=== PATIENT | female | born 1980 | race Caucasian/White ===

== ENCOUNTER → 2018-03-22 08:29 | Outpatient (CLI) | payer OTHER | END | disposition home or self-care (01) | LOC: LAB 08:29 | DX: E11.9 Type 2 diabetes mellitus without complications (principal); E78.3 Hyperchylomicronemia; D66 Hereditary factor VIII deficiency; D65 Disseminated intravascular coagulation [defibrination syndrome]; N39.0 Urinary tract infection, site not specified; Z01.810 Encounter for preprocedural cardiovascular examination ==

== ENCOUNTER 2019-02-04 11:46 | Emergency (ER) | payer OTHER ==
[~2019-02-04] VITALS: Ht 160 cm; Wt 63.5 kg
== END 2019-02-04 16:08 | disposition home or self-care (01) ==
LOC: ER 11:46
DX: G43.909 Migraine, unspecified, not intractable, without status migrainosus (principal)

== ENCOUNTER 2019-03-25 08:23 | Emergency (ER) | payer OTHER ==
[~2019-03-25] VITALS: Ht 160 cm; Wt 61.2 kg
[2019-03-25] MEDS ORDERED: PEPCID AC20 MG PO (15:19)
[2019-03-25] MEDS ORDERED: DICY20TA PO (15:19)
== END 2019-03-25 16:14 | disposition home or self-care (01) ==
LOC: ER 08:23
DX: K29.60 Other gastritis without bleeding (principal); T50.995A Adverse effect of other drugs, medicaments and biological substances, initial encounter; Y92.89 Other specified places as the place of occurrence of the external cause

== ENCOUNTER 2022-11-22 08:41 | Outpatient (CLI) | payer OTHER ==
[~2022-11-22 08:41] MED LIST: DICY20TA PO; PEPCID AC20 MG PO
== END 2022-11-22 08:52 | disposition home or self-care (01) ==
LOC: RAD 08:41
PROVIDERS: ATTEND Orthopaedic Surgery Hand Surgery
DX: S63.302A Traumatic rupture of unspecified ligament of left wrist, initial encounter (principal); S63.522D Sprain of radiocarpal joint of left wrist, subsequent encounter
CPT/HCPCS: 73218

== ENCOUNTER 2022-12-01 07:08 | Outpatient (CLI) | payer OTHER ==
[2022-12-03] MEDS ORDERED: PAXIL20 MG PO (13:46)
[2022-12-03] MEDS ORDERED: EFFEXOR XR75 MG PO (13:46)
[2022-12-03] MEDS ORDERED: LAMICTAL25 MG PO (13:46)
[2022-12-03] MEDS ORDERED: CLONAZEPAM1 M1 PO (13:47)
[2022-12-03] MEDS ORDERED: ABILIFY10 MG PO (13:47)
== END 2022-12-01 23:00 | disposition home or self-care (01) ==
LOC: LAB 07:08
PROVIDERS: ATTEND Orthopaedic Surgery Hand Surgery
DX: Z01.810 Encounter for preprocedural cardiovascular examination (principal); Z20.822 Contact with and (suspected) exposure to COVID-19; E11.9 Type 2 diabetes mellitus without complications; E78.00 Pure hypercholesterolemia, unspecified; E78.3 Hyperchylomicronemia; D65 Disseminated intravascular coagulation [defibrination syndrome]; D66 Hereditary factor VIII deficiency; N39.0 Urinary tract infection, site not specified

== ENCOUNTER 2022-12-04 06:00 | Day surgery (SDC) | payer OTHER ==
[~2022-12-04 06:00] MED LIST changes: +ABILIFY10 MG PO; +CLONAZEPAM1 M1 PO; +EFFEXOR XR75 MG PO; +LAMICTAL25 MG PO; +PAXIL20 MG PO
== END 2022-12-04 16:50 | disposition home or self-care (01) ==
LOC: CIR.AMB 06:00
PROVIDERS: ATTEND Orthopaedic Surgery Hand Surgery
DX: S63.302A Traumatic rupture of unspecified ligament of left wrist, initial encounter (principal); I10 Essential (primary) hypertension; Z20.822 Contact with and (suspected) exposure to COVID-19

== ENCOUNTER 2022-12-15 23:18 | Emergency (ER) | payer OTHER ==
[~2022-12-15] VITALS: Ht 160 cm; Wt 70.8 kg
[2022-12-15] MEDS ORDERED: RESTORIL30 M1 PO (23:54)
[2022-12-15] MEDS ORDERED: PERCOCET 7.5-31 EACH PO (23:56)
[2022-12-15] MEDS ORDERED: NEURONTIN300 MG PO (23:57)
[2022-12-16] MEDS ORDERED: MIRALAX17 GM PO (01:58)
== END 2022-12-16 02:28 | disposition home or self-care (01) ==
LOC: ER 23:18
DX: K59.00 Constipation, unspecified (principal)

== ENCOUNTER 2023-01-02 08:47 | Outpatient (CLI) | payer OTHER ==
[~2023-01-02 08:47] MED LIST changes: +MIRALAX17 GM PO; +NEURONTIN300 MG PO; +PERCOCET 7.5-31 EACH PO; +RESTORIL30 M1 PO
== END 2023-01-02 09:06 | disposition home or self-care (01) ==
LOC: RAD 08:47 → SONOGRAMA 08:47
DX: E03.9 Hypothyroidism, unspecified (principal); J20.0 Acute bronchitis due to Mycoplasma pneumoniae

== ENCOUNTER → 2023-01-02 09:38 | Outpatient (CLI) | payer OTHER | END | disposition home or self-care (01) | LOC: EKG 09:38 | DX: I49.9 Cardiac arrhythmia, unspecified (principal) ==

== ENCOUNTER → 2023-04-11 | Emergency (ER) | payer OTHER ==
[~2023-04-11] VITALS: Ht 160 cm; Wt 77.1 kg
== END | disposition left against medical advice (07) ==
LOC: ER 23:16
DX: Z53.21 Procedure and treatment not carried out due to patient leaving prior to being seen by health care provider (principal)

== ENCOUNTER 2023-11-17 10:46 | Emergency (ER) | payer OTHER ==
[~2023-11-17] VITALS: Ht 160 cm; Wt 81.6 kg
[2023-11-17] MEDS ORDERED: PRAZOSIN HCL1 GM PO (11:24)
[2023-11-17] MEDS ORDERED: MIRTAZAPINE30 M1 PO (11:25)
[2023-11-17] MEDS ORDERED: VENLAFAXINE HCL75 M2 PO (11:25)
[2023-11-17] MEDS ORDERED: TRAZODONE HCL150 MG PO (11:25)
[2023-11-17] MEDS ORDERED: LAMOTRIGINE100 MG PO (11:25)
[2023-11-17] MEDS ORDERED: HYOSCYAMINE SULFATE 0.125 MG TAB.SUBL ONE (12:44)
[2023-11-17] MEDS ORDERED: BARIUM SULFATE 450 ML ORAL.SUSP PO ONE (12:44)
[2023-11-17] MEDS ORDERED: KETOROLAC TROMETHAMINE 30 MG VIAL ONE (12:44)
[2023-11-17] MEDS ORDERED: PANTOPRAZOLE SODIUM 40 MG/VIAL VIAL IV PUSH ONE (12:45)
[2023-11-17] MEDS ORDERED: KETOROLAC TROMETHAMINE 15 MG VIAL IV ONE (12:45)
[2023-11-17] MEDS ORDERED: HYOSCYAMINE SULFATE 0.125 MG TAB.SUBL SL ONE (12:45)
[2023-11-17 13:12] LABS: HEMATOCRIT 37.8 % (36.0-45.00); HEMOGLOBIN 12.9 g/dL (12.0-15.00); MEAN CELL VOLUME 92.6 fL (80.00-100.00); MEAN CORPUSCULAR HEMOGLOBIN 31.6 pg (27.00-32.0); MEAN CORPUSCULAR HGB CONC 34.1 g/dl (32.0-36.0); PLATELET COUNT 254 K/uL (150-450); RED BLOOD COUNT 4.08 M/uL (4.00-6.00); RED CELL DISTRIBUTION WIDTH 13.5 % (11.5-14.5)
[2023-11-17 13:48] LABS: PH,URINE 5.5 (5.0-8.0); URINE APPEARANCE Clear; URINE BILIRRUBIN Negative (NEGATIVE); URINE BLOOD Negative; URINE COLOR Dark Yellow; URINE GLUCOSE Negative (NEGATIVE); URINE LEUKOCYTE Negative; URINE NITRATE Negative; URINE PROTEIN Negative (NEGATIVE); URINE UROBILINOGEN 0.2 E.U./dl
[2023-11-17 13:53] LABS: URINE BACTERIA 1016.7 uL (0.0-1933); URINE EPITHELIAL CELLS 29.6 uL (0.0-38.8); URINE RBC 17.8 uL (0.0-20.8); URINE WBC 5.5 uL (0.0-23.2)
[2023-11-17 13:59] LABS: ALBUMIN 3.6 gm/dL (3.4-5.0); ALKALINE PHOSPHATASE 111 U/L (50-136); ALT/SGPT 91 U/L (12-78); ANION GAP 7 (10.0-20.0); AST/SGOT 64 U/L (15-37); BILIRUBIN TOTAL 0.39 mg/dL (0.3-1.2); BLOOD UREA NITROGEN 8 mg/dL (7-18); BUN CREA RATIO 8 (7.0-25.0); CALCIUM 8.8 mg/dL (8.5-10.1); CARBON DIOXIDE 29 mEq/L (21-32); CHLORIDE 111 mmol/L (98-107); GFR 60.51; GLOBULINA 3.5 G/DL (2.4-3.5); GLUCOSE FASTING 92 mg/dL (65-100); OSMOLALITY SERUM 283 MOSM/KG (275-295); POTASSIUM 4.31 mEq/L (3.5-5.1); SODIUM 143 mmol/L (136-145); TOTAL PROTEIN 7.1 gm/dL (6.4-8.2)
[2023-11-17 14:15] LABS: HCG QUANTITATIVE < 1 mUI/mL (1-3)
[2023-11-17] MEDS ORDERED: METRONIDAZOLE/SODIUM CHLORIDE 500 MG/100 ML PIGGYBACK IV ONE ×2 (15:15→15:29)
[2023-11-17] MEDS ORDERED: CIPROFLOXACIN IN 5 % DEXTROSE 400 MG/200 ML PIGGYBAG IV ONE ×2 (15:15→15:29)
== END 2023-11-17 18:24 | disposition home or self-care (01) ==
LOC: ER 10:48
PROVIDERS: General Practice
DX: R14.1 Gas pain (principal); R10.32 Left lower quadrant pain; R14.3 Flatulence